=== PATIENT | male | born 1970 ===

== ENCOUNTER 2021-10-28 05:41 | Day surgery (SDC) | payer OTHER ==
[~2021-10-28 05:41] MED LIST: LANTUS; TOPROL XL50 M1 PO
[2021-10-28] MEDS ORDERED: PERCOCET 5-3251 EACH PO (08:47)
== END 2021-10-28 13:50 | disposition home or self-care (01) ==
LOC: CIR.AMB 05:41
PROVIDERS: ATTEND Surgery
DX: K60.3 Anal fistula (principal); Z20.822 Contact with and (suspected) exposure to COVID-19; Z85.048 Personal history of other malignant neoplasm of rectum, rectosigmoid junction, and anus; Z88.2 Allergy status to sulfonamides; I48.91 Unspecified atrial fibrillation; I10 Essential (primary) hypertension; E11.9 Type 2 diabetes mellitus without complications; J45.909 Unspecified asthma, uncomplicated